=== PATIENT | female | born 1995 | race Hispanic/Latino ===

== ENCOUNTER 2024-06-07 23:08 | Day surgery (SDC) | payer OTHER, SELFPAY ==
[2024-06-07 23:36] VITALS: BMI 22.5
[2024-06-08] MEDS ORDERED: hydrALAZINE 20 MG/ML VIAL SLOW IVP PRN (00:13)
== END 2024-06-08 01:48 | disposition home or self-care (01) ==
LOC: CSHLD/OP 23:08
PROVIDERS: ATTEND Family Medicine
DX: O99.891 Other specified diseases and conditions complicating pregnancy (principal); R10.2 Pelvic and perineal pain; Z3A.31 31 weeks gestation of pregnancy; Z79.899 Other long term (current) drug therapy
CPT/HCPCS: 87480; 87510; 87660; 99283

== ENCOUNTER 2024-07-31 18:00 | Inpatient (IN) | payer OTHER ==
[2024-08-03] MEDS ORDERED: Bupivacaine/Epinephrine 0.25% 30 ML VIAL ONE (08:00)
[2024-08-03] MEDS ORDERED: Bupivacaine HCl 0.5%/Epinephrine 1:200,000/PF 30 ml Vial ONE (08:00)
[2024-08-03] MEDS ORDERED: Bupivacaine 0.25% HCL 30 ML VIAL ONE (08:00)
[2024-08-03 21:43] VITALS: BMI 26.6
[2024-08-03] MEDS ORDERED: Misoprostol 200 MCG TAB PR PRN (23:13)
[2024-08-03] MEDS ORDERED: Methylergonovine 0.2 MG/ML VIAL IM PRN (23:13)
[2024-08-03] MEDS ORDERED: Acetaminophen 500 MG TAB PO PRN (23:13)
[2024-08-03] MEDS ORDERED: HYDROcodone/Acetaminophen 5/325 mg Tablet PO PRN (23:13)
[2024-08-03] MEDS ORDERED: Diphenoxylate HCl/Atropine Tablet PO PRN (23:13)
[2024-08-03] MEDS ORDERED: Carboprost 250 MCG/ML AMP IM PRN (23:13)
[2024-08-03] MEDS ORDERED: fentaNYL 50 mcg/mL 1 mL Vial SLOW IVP PRN (23:13)
[2024-08-03] MEDS ORDERED: Promethazine HCl 25 MG/ML VIAL IM PRN (23:13)
[2024-08-03] MEDS ORDERED: hydrALAZINE 20 MG/ML VIAL SLOW IVP PRN (23:13)
[2024-08-03] MEDS ORDERED: Lidocaine 1% (PF) 30 ML VIAL SC PRN (23:13)
[2024-08-03] MEDS ORDERED: Ibuprofen 800 MG TAB PO PRN (23:13)
[2024-08-03] MEDS ORDERED: Tranexamic Acid 1,000 MG/10 ML VIAL IVP PRN (23:13)
[2024-08-03] MEDS ORDERED: Oxytocin 30 units/NS 500 ML 500 ML IV SCH ×2 (23:15)
[2024-08-03 23:44] LABS: Hematocrit 29.4 % (34.9-44.5); Hemoglobin 9.4 g/dL (12.0-15.5); Mean Corpuscular Hemoglobin 24.2 pg (27.0-33.0); Mean Corpuscular Volume 75.8 fL (81.6-98.3); Platelet Count 233 10x3/uL (150-450); RBC Distribution Width 17.2 % (11.5-14.5); Red Blood Cell (RBC) Count 3.88 10x6/uL (3.90-5.03); White Blood Cell (WBC) Count 8.7 10x3/uL (3.5-10.5)
[2024-08-04 00:02] LABS: Syphilis Antibody Nonreactive (Nonreactive); Syphilis Antibody Index 0.07 S/CO (<1.00 Non-Reactive)
[2024-08-04 00:05] LABS: HBsAg Index 0.24 S/CO (0-0.99); Hep B Surf Ag - L&D Non-Reactive S/CO (NonReactive)
[2024-08-04] MEDS: Lactated Ringer's 1,000 ML IV SCH (00:49)
[2024-08-04] MEDS: Misoprostol 100 MCG TAB PO SCH (00:53)
[2024-08-04] MEDS ORDERED: Promethazine HCl 25 MG/ML VIAL IM PRN ×2 (13:07→23:49)
[2024-08-04] MEDS ORDERED: ePHEDrine Sulfate 50 MG/10 ML VIAL SLOW IVP PRN (13:07)
[2024-08-04] MEDS ORDERED: Ondansetron PF 4 MG/2 ML Vial IVP PRN ×3 (13:07→23:49)
[2024-08-04] MEDS ORDERED: Naloxone HCl 0.4 mg/ml Vial IVP PRN ×4 (13:07→23:49)
[2024-08-04] MEDS ORDERED: diphenhydrAMINE 50 MG/ML VIAL IVP PRN (13:07)
[2024-08-04] MEDS ORDERED: Acetaminophen 325 MG TAB PO PRN (13:07)
[2024-08-04] MEDS ORDERED: Lactated Ringer's 500 ML IV PRN (13:07)
[2024-08-04] MEDS ORDERED: Moisturizing Cream (Eucerin) 113 GM JAR TOP PRN ×2 (13:07→23:49)
[2024-08-04] MEDS ORDERED: Communication Order-Pharmacy FS SCH ×2 (13:15→23:45)
[2024-08-04] MEDS: Ondansetron PF 4 MG/2 ML Vial IVP PRN (20:53)
[2024-08-04] MEDS: fentaNYL 2 mcg/Ropivacaine 0.2% Epidural 100 ML CADD EPIDURAL SCH (21:28)
[2024-08-04] MEDS ORDERED: Ketorolac Tromethamine 30 MG (1 mL) VIAL IVP SCH (23:45)
[2024-08-04] MEDS ORDERED: Naloxone HCl 0.4 mg/ml Vial IV PRN (23:49)
[2024-08-04] MEDS ORDERED: Meperidine HCl/PF 25 MG (1 mL) VIAL SLOW IVP PRN (23:49)
[2024-08-04] MEDS ORDERED: HYDROmorphone 0.5 MG/0.5 ML SYRINGE SLOW IVP PRN (23:49)
[2024-08-04] MEDS ORDERED: fentaNYL 50 mcg/mL 1 mL Vial SLOW IVP PRN (23:49)
[2024-08-05] MEDS ORDERED: Boostrix 0.5 ML (Tdap) VIAL (>/=7 yrs of age) IM ONE (02:24)
[2024-08-05] MEDS ORDERED: Lanolin Ointment 7 GM TUBE TOP PRN (02:24)
[2024-08-05] MEDS ORDERED: Promethazine HCl 25 MG/ML VIAL IM PRN (02:24)
[2024-08-05] MEDS ORDERED: Bisacodyl 10 MG SUPP PR PRN (02:24)
[2024-08-05] MEDS ORDERED: hydrALAZINE 20 MG/ML VIAL SLOW IVP PRN (02:24)
[2024-08-05] MEDS ORDERED: Ondansetron PF 4 MG/2 ML Vial IVP PRN (02:24)
[2024-08-05] MEDS: fentaNYL/Ropivacaine Epidural 100 ML ONE (02:47)
[2024-08-05] MEDS: fentaNYL 50 mcg/mL 1 mL Vial ONE ×2 (02:48)
[2024-08-05] MEDS: Dexmedetomidine 200 MCG/2 ML VIAL ONE (02:48)
[2024-08-05] MEDS: Lidocaine 2% MPF 10 ML AMP (For Epidural Use) ONE (02:48)
[2024-08-05] MEDS: CEFAZOLIN 2 GM VIAL ONE (02:51)
[2024-08-05] MEDS: Azithromycin 500 MG VIAL ONE (02:51)
[2024-08-05] MEDS: Oxytocin 10 UNITS/ML VIAL ONE ×2 (02:51→02:52)
[2024-08-05] MEDS: Erythromycin Base 0.5% Oint 1 GM TUBE ONE (02:51)
[2024-08-05] MEDS: KETAMINE 100 MG/ML (5ML VIAL) ONE (02:52)
[2024-08-05] MEDS: ePHEDrine Sulfate 50 MG/10 ML VIAL ONE (02:52)
[2024-08-05] MEDS: Dexamethasone 10 MG/ML VIAL ONE (02:52)
[2024-08-05] MEDS: Phytonadione Neonatal 1 MG/0.5 ML AMP ONE (02:52)
[2024-08-05] MEDS: Ondansetron PF 4 MG/2 ML Vial ONE (02:52)
[2024-08-05] MEDS: Morphine PF 10 MG/10 ML VIAL ONE (02:52)
[2024-08-05] MEDS: Hepatitis B Vaccine 10 MCG/0.5 ML SYR ONE (02:52)
[2024-08-05] MEDS: PHENYLEPHRINE-NS 100 MCG/ML 10 ML SYRINGE ONE (02:52)
[2024-08-05] MEDS: Ketorolac Tromethamine 30 MG (1 mL) VIAL IVP PRN (03:26)
[2024-08-05] MEDS: Ketorolac Tromethamine 30 MG (1 mL) VIAL IVP SCH (03:29)
[2024-08-05] MEDS: diphenhydrAMINE 50 MG/ML VIAL IVP PRN (03:30)
[2024-08-05 04:09] LABS: Hemoglobin 8.4 g/dL (12.0-15.5); Mean Corpuscular HGB CONC 31.1 g/dL (32.0-36.0); Mean Corpuscular Hemoglobin 23.7 pg (27.0-33.0); Mean Corpuscular Volume 76.3 fL (81.6-98.3); Mean Platelet Volume 14.1 fL (7.4-10.4); Platelet Count 216 10x3/uL (150-450); RBC Distribution Width 17.2 % (11.5-14.5); Red Blood Cell (RBC) Count 3.54 10x6/uL (3.90-5.03); White Blood Cell (WBC) Count 19.1 10x3/uL (3.5-10.5)
[2024-08-05 04:28] LABS: D-Dimer Test 5.99 mcg/mL (0.19-0.50); INR-International Normal Ratio 0.9; PTT 27.3 sec (22.0-33.0); Prothrombin Time 10.1 sec (9.5-12.1)
[2024-08-05] MEDS: diphenhydrAMINE 25 MG CAP PO PRN (07:42)
[2024-08-05] MEDS: Ferrous Sulfate 325 MG TAB PO SCH (08:59)
[2024-08-05] MEDS: Prenatal Vitamin 1 TAB PO SCH (08:59)
[2024-08-05] MEDS: Docusate 100 MG CAP PO SCH (08:59)
[2024-08-05] MEDS ORDERED: Meperidine HCl/PF 25 MG (1 mL) VIAL IM PRN (12:15)
[2024-08-05] MEDS: HYDROcodone/Acetaminophen 5/325 mg Tablet PO PRN ×2 (12:17→15:52)
[2024-08-05] MEDS: Simethicone Chewable 80 MG TAB PO PRN (20:13)
[2024-08-06] MEDS: Ibuprofen 800 MG TAB PO SCH (05:02)
[2024-08-07 08:22] VITALS: BP 133/60; TEMP 98.3
== END 2024-08-07 13:05 | disposition home or self-care (01) | DRG 787 ==
LOC: CSHLD 08-03 20:50 → CSHPP 08-05 02:05
PROVIDERS: ADMIT Family Medicine; ATTEND Family Medicine
PROC: 10907ZC Drainage of Amniotic Fluid, Therapeutic from Products of Conception, Via Natural or Artificial Opening (ICD-10-PCS; principal; 2024-08-04)
PROC: 10D00Z1 Extraction of Products of Conception, Low, Open Approach (ICD-10-PCS; 2024-08-04)
DX: O36.63X0 Maternal care for excessive fetal growth, third trimester, not applicable or unspecified (principal); O72.1 Other immediate postpartum hemorrhage; O62.1 Secondary uterine inertia; Z3A.39 39 weeks gestation of pregnancy; Z37.0 Single live birth
CPT/HCPCS: 36415; 51702; 85027; 85049; 85300; 85362; 85384; 85610; 85730; 86780; 86850; 86870; 86900; 86901; 86922; 87340; J0665; J1100; J1200; J1885; J2274; J2405; J2590; J3010; J7120